=== PATIENT | female | born 1980 | race Caucasian/White ===

== ENCOUNTER 2023-11-27 08:13 | Emergency (ER) | payer BC, SELFPAY ==
--- NOTE | 2023-11-27 08:28 | ED.GENADULT ---
HPI - General Adult General Date Seen: 11/27/23 Chief complaint: Flank Pain Stated complaint: RT flank pain hx kidney stones Time Seen by Provider: 11/27/23 08:27 History of Present Illness HPI narrative: 43 yo F with h/o kidney stones, VIRGILIO, elevated BMI, bariatic surgery, iron deficiency anemia, chronic kidney dz (stage 2), migraines, and previous cholecystectomy, gastric sleeve surgery. She presents to the ER today with right flank pain, nausea, and dark colored urine. She has had symptoms of intermittent right flank pain for about a week. She says it feels like kidney stone. She has been dealing with the pain and trying to wait for it to pass. However it has been a week now and it is not getting any better. The pain has been intermittently in her right flank and sometimes radiating to her right upper quadrant. There is no clear pattern or trigger for the pain. Does not seem to be postprandial. She has been nauseous at times due to pain but no vomiting. Bowel movements have been normal. She is not having any trouble with her menstrual cycle. She does not think she is . She has noted some dark urine but that might be blood. No dysuria or urgency but she notes that sometimes she seems to have ?a splattering? stream when she urinates. This morning her pain is worse and since has been going on over a week now she decided to come to the ER. Her mother drove her here and will be able to give her ride home. EXAM: CT ABDOMEN PELVIS STONE PROTOCOL WO LOCATION: [facility] DATE/TIME: 04/26/2021 INDICATION: Flank Pain COMPARISON: 07/29/19 TECHNIQUE: CT scan of the abdomen and pelvis was performed without oral or IV contrast. Multiplanar reformats were obtained. Dose reduction techniques were used. CONTRAST: None. FINDINGS: LOWER CHEST: Normal. HEPATOBILIARY: Gallbladder removed. Normal liver. PANCREAS: Norml. SPLEEN: Normal. ADRENAL GLANDS: Normal. KIDNEY/BLADDER: No renal stones and no hydronephrosis. The tiny bilateral nonobstructing intrarenal stones seen on the prior study are no longer present. BOWEL: Postop gastric sleeve. Bowel loops otherwise normal. LYMPH NODES: Normal. VASCULATURE: Unremarkable. PELVIC ORGANS: Normal. MUSCULOSKELETAL: Normal. ? IMPRESSION: 1. Nothing to explain the patient's flank pain. 2. The previous nonobstructing intrarenal stones are no longer present. Related Data Home Medications ?Medication ?Instructions ?Recorded ?Confirmed duloxetine 60 mg capsule,delayed 60 mg PO DAILY 11/27/23 11/27/23 release omeprazole 40 mg capsule,delayed 40 mg PO DAILY 11/27/23 11/27/23 release Previous Rx's ?Medication ?Instructions ?Recorded cyclobenzaprine 10 mg tablet 10 mg PO TID PRN muscle spasm #10 11/27/23 tabs hydrocodone 5 mg-acetaminophen 325 1 tab PO Q4-6H PRN pain #14 tabs 11/27/23 mg tablet Allergies Allergy/AdvReac Type Severity Reaction Status Date / Time Sulfa (Sulfonamide Allergy Unknown Verified 11/27/23 08:51 Antibiotics) [facility] Social History Smoking Status: Current every day smoker Do you use any of these nicotine containing products: Vaping Products How often do you have a drink containing alcohol: never How often do you have six or more drinks on one occasion: Never AUDIT-C Alcohol total score: 0 Non-prescribed substance use: denies use Exam Narrative: Exam Narrative: Constitutional: Appears well-developed and well-nourished. Alert. Conversant. Uncomfortable, but Non toxic. HENT: Head: Atraumatic. Nose: Nose normal. Mouth/Throat: Oral mucosa is clear and moist. no trismus. Eyes: Conjunctivae normal. EOM normal. Pupils equal, round, and reactive to light. No scleral icterus. Neck: Normal range of motion. Neck supple. No tracheal deviation present. Cardiovascular: Normal rate, regular rhythm. No gallop. No friction rub. No murmur heard. Symmetric radial artery pulses Pulmonary/Chest: Effort normal. No stridor. No respiratory distress. No wheezes. No rales. No rhonchi . No tenderness. Abdominal: Soft. Bowel sounds normal. No distension. No mass. No tenderness. No rebound. No guarding. Marked right CVA tenderness to even light touch. No vesicular rash or shingles. Musculoskeletal: RUE: Normal range of motion. No tenderness. No deformity LUE: Normal range of motion. No tenderness. No deformity RLE: Normal range of motion. No edema. No tenderness. No deformity LLE: Normal range of motion. No edema. No tenderness. No deformity Neurological: Alert and oriented to person, place, and time. Normal strength. CN II-VII intact. No sensory deficit. GCS eye subscore is 4. GCS verbal subscore is 5. GCS motor subscore is 6. Normal coordination Skin: Skin is warm and dry. No rash noted. No pallor. Normal capillary refill. Psychiatric: Normal mood. Normal affect. Const: Vital Signs, click to edit/add: Vital Signs - 24 hr 11/27/23 08:33 11/27/23 09:15 Temperature 97.2 F L Pulse Rate [Pulse Oximeter] 93 70 Respiratory Rate 18 18 Blood Pressure [Ri ght Upper Arm] 159/96 H Pulse Oximetry 97 97 Oxygen Delivery Me thod Room Air Room Air Course Vital Signs Vital signs: Initial Vital Signs Temperature 97.2 F L 11/27/23 08:33 Temperature Source Temporal Artery Scan 11/27/23 08:33 Pulse Rate 93 11/27/23 08:33 Respiratory Rate 18 11/27/23 08:33 Blood Pressure 159/96 H 11/27/23 08:33 Blood Pressure Mean 117 H 11/27/23 08:33 Pulse Oximetry 97 11/27/23 08:33 Oxygen Delivery Method Room Air 11/27/23 08:33 Vital Signs Temperature 97.2 F L 11/27/23 08:33 Pulse Rate 93 11/27/23 08:33 Respiratory Rate 18 11/27/23 08:33 Blood Pressure 159/96 H 11/27/23 08:33 Pulse Oximetry 97 11/27/23 08:33 Oxygen Delivery Method Room Air 11/27/23 08:33 Temperature 97.2 F L 11/27/23 08:33 Pulse Rate 70 11/27/23 09:15 Respiratory Rate 18 11/27/23 09:15 Blood Pressure 159/96 H 11/27/23 08:33 Pulse Oximetry 97 11/27/23 09:15 Oxygen Delivery Method Room Air 11/27/23 09:15 Medications Administered Medications: Generic Name Dose Route Start Last Admin Trade Name Freq PRN Reason Stop Dose Admin Hydromorphone HCl 0.5 mg 11/27/23 08:51 11/27/23 09:19 Hydromorphone 0.5 Mg/0.5 Ml Inj IVP 0.5 mg Q1H PRN Administration Pain Discontinued Medications Generic Name Dose Route Start Last Admin Trade Name Freq PRN Reason Stop Dose Admin Ketorolac Tromethamine 15 mg 11/27/23 08:51 11/27/23 09:19 Ketorolac 15 Mg/Ml Inj IVP 11/27/23 08:52 15 mg ONCE ONE Administration Ondansetron HCl 4 mg 11/27/23 08:51 11/27/23 09:19 Ondansetron 2 Mg/Ml Inj IVP 11/27/23 08:52 4 mg ONCE ONE Administration Medical Decision Making MDM Narrative Medical decision making narrative: Presented to the Emergency Department with right flank pain. The differential diagnosis of abdominal pain includes: Kidney stone, pyelonephritis, musculoskeletal pain, unusual presentation of Appendicitis, Bowel Obstruction, Ulcer, Ischemia, Diverticulitis, Pancreatitis, Enteritis/Colitis, amongst many other etiologies. Primary concern is for possible kidney stone since she has a history of stones. She is status post cholecystectomy. She is not having any pain with breathing. No shortness of breath. Clear lungs. No hypoxia or tachycardia to suggest PE. Laboratory testing does not reveal a cause for the patient's pain. LFTs and lipase are normal. No evidence to suggest a retained common bile duct stone. Urinalysis is negative for hematuria or pyuria. Stone protocol CT Imaging is noted to be normal. The exact etiology of the abdominal pain is not clear at this time. She does have a couple of red dots, which led me to consider shingles, but no vesicular lesions, and these erythematous lesions on her right low back a little bit lower than where her pain is so do not seem consistent with shingles. She does not have any history of hypercoagulability. No reason to suspect renal infarct. At this point we feel that the risk of radiation with repeat CT scan , would outweigh the benefit at this point so will hold off on a contrast CT for now. She does note a lot of pain with movement. Therefore, pain could be musculoskeletal. No life threatening cause or need for emergent surgery or hospital admission is detected today. Will treat with [place] and Flexeril. Opiate and sedation precautions reviewed. The patient was advised that if symptoms do not completely resolve within another 24 hours re-evaluation with primary care or return to the ED is indicated. The patient also understands that if they worsen, they should return to the ER right away. I discussed the uncertainty about the diagnosis and answered the patient's questions. Return precautions discussed. Lab Data Labs: Lab Results 11/27/23 11/27/23 Range/Units 09:05 09:08 WBC 7.47 (4.50-11.00) K/uL RBC 4.56 (4.00-5.20) m/uL Hgb 13.3 (12.0-16.0) gm/dL Hct 39.3 (33.0-51.0) % MCV 86 (80-100) fL MCH 29 (26-34) pg MCHC 34 (32-36) gm/dL RDW Coeff of [place] 13.6 (11.5-15.5) % Plt Count 349 (140-440) K/uL Neut % (Auto) 64.3 (42.0-72.0) % Lymph % (Auto) 27.3 (20-44) % [place] % (Auto) 5.8 (0.0-11.0) % Eos % (Auto) 2.1 (0.0-7.0) % Baso % (Auto) 0.4 (0.0-3.0) % Neut # (Auto) 4.80 (1.7-7.0) K/uL Lymph # (Auto) 2.04 (0.90-2.90) K/uL [place] # (Auto) 0.40 (0.00-0.90) K/UL Eos # (Auto) 0.16 (0.00-0.50) K/uL Baso # (Auto) 0.03 (0.00-0.30) K/uL Abs Immat Gran (auto) 0.01 (0.00-0.30) K/uL Imm/Tot Granulo (auto) 0.1 % Sodium 138 (135-149) mmol/L Potassium 3.7 (3.6-5.1) mmol/L Chloride 108 (96-114) mmol/L Carbon Dioxide 20 (20-32) mmol/L Anion Gap 10 (7-15) mEq/L BUN 3 L (5-24) mg/dL Creatinine 0.7 (0.5-1.5) mg/dL Estimated Creat Clear 83.65 Estimated GFR 111 ml/min Glucose 94 (60-115) mg/dL Calcium 8.9 (8.4-10.6) mg/dL Total Bilirubin 0.2 (0.1-1.5) mg/dL AST 20 (12-35) U/L ALT 19 (4-35) U/L Alkaline Phosphatase 60 (40-150) U/L Total Protein 7.1 (6.0-8.3) g/dL Albumin 4.1 (3.3-5.0) g/dL Lipase 65 (23-300) U/L HCG, Quant < 2.39 mIU/mL Urine Color Yellow (Yellow) Urine Appearance Clear (Clear) Urine pH 7.0 (5.0-8.5) Ur Specific [place] 1.025 (1.000-1.030) Urine Protein Negative (Negative) Urine Glucose (UA) Negative (Negative) Urine Ketones Negative (Negative) Urine Blood Negative (Negative) Urine Nitrite Negative (Negative) Urine Bilirubin Negative (Negative) Urine Urobilinogen 0.2 (0.2-1.0) Ur Leukocyte Esterase Negative (Negative) Urine RBC 0-2 (0-2) Urine WBC 0-2 (0-5) Ur Squamous Epith Cells Moderate A (None-Few) Urine Bacteria None (None) Imaging Data CT scan - abdomen: Attestation: I have reviewed the pertinent imaging results. Radiologist's impression: FINDINGS: LUNG BASES: The lung bases as visualized appear normal.The heart size is normal at the lung bases. Incidental small fat containing [place] hernia on the left. LIVER/BILIARY SYSTEM:The liver is normal in size and configuration given the lack of intravenous contrast. There is no visible focal mass and there is no intra- or extra hepatic biliary ductal dilatation.Surgically absent gallbladder ADRENALS: Normal non-contrast appearance KIDNEYS, URETERS and BLADDER:The kidneys appear normal given lack of intravenous contrast. No visible mass, calculus or hydronephrosis. The ureters and bladder as visualized appear normal. SPLEEN:Normal non-contrast appearance. PANCREAS: Normal non-contrast appearance. RETROPERITONEUM and MESENTERY: There is no mass, adenopathy or aortic aneurysm. GASTROINTESTINAL SYSTEM: There is no evidence of diverticulitis, colitis, mechanical obstruction, or appendicitis. The small bowel as visualized appears normal.Small hiatal hernia. Findings related to gastric bypass without evidence of associated complication. The appendix is well seen and appears normal PELVIS: No mass, adenopathy or free fluid. OSSEOUS STRUCTURES and ABDOMINAL WALL: There is an age-appropriate appearance of the osseous structures.No significant abdominal wall defect. OTHER: No free fluid or free air. IMPRESSION: No specific visible cause for right flank pain. Incidental nonacute appearing findings as discussed above. Discharge Plan Discharge Clinical Impression: Acute right flank pain Patient Disposition: Home, Self-Care Condition: Stable Instructions: Flank Pain (ED) Additional Instructions: As we discussed, so far your workup looks reassuring. However we do not know for sure what is causing your side to her. Monitor carefully. Use the pain meds and muscle relaxers to help relieve the pain. If your pain is not substantially improved by tomorrow, come back to the ER or see your doctor for recheck. If her pain gets worse or if you have other new concerning symptoms such as fever, trouble breathing, coughing, or worsening pain, come back to the ER immediately. Use caution with [place] and Flexeril because these medications can cause dizziness, drowsiness, and can be addictive. Prescriptions: New hydrocodone-acetaminophen 5-325 mg tablet 1 tab PO Q4-6H PRN (Reason: pain) Qty: 14 0RF cyclobenzaprine 10 mg tablet 10 mg PO TID PRN (Reason: muscle spasm) Qty: 10 0RF No Action omeprazole 40 mg capsule,delayed release(DR/EC) 40 mg PO DAILY duloxetine 60 mg capsule,delayed release(DR/EC) 60 mg PO DAILY Follow Up/Referrals: Provider,Not a Local [Primary Care Provider] - Stand Alone Forms: [employer] Info Instructions
[2023-11-27 08:33] VITALS: BP 159/96; PULSE 93; RESP 18; TEMP 36.2; O2SAT 97; BMI 45.7
--- NOTE | 2023-11-27 08:51 | CT_ITS ---
Patient: CATARINA ZAMORANO Facility:?[facility] Patient ID:?[id number] Site Patient ID:?[id number]. Site :?[id number] Study:?CT-Abdomen/Pelvis-11/27/2023 9:33:38 AM Ordering Physician:Polina Camejo Final Report: INDICATION: Right flank pain COMPARISON: None TECHNIQUE: CT examination of the abdomen and pelvis was performed without intravenous contrast. Thin section axial images were obtained from the lung bases through the pubic symphysis. Oral contrast was not administered. Please note that all CT scans at this facility use dose modulation, iterative reconstruction, and/or weight-based dosing when appropriate to reduce radiation dose to as low as reasonably achievable. FINDINGS: LUNG BASES: The lung bases as visualized appear normal.The heart size is normal at the lung bases. Incidental small fat containing [place] hernia on the left. LIVER/BILIARY SYSTEM:The liver is normal in size and configuration given the lack of intravenous contrast. There is no visible focal mass and there is no intra- or extra hepatic biliary ductal dilatation.Surgically absent gallbladder ADRENALS: Normal non-contrast appearance KIDNEYS, URETERS and BLADDER:The kidneys appear normal given lack of intravenous contrast. No visible mass, calculus or hydronephrosis. The ureters and bladder as visualized appear normal. SPLEEN:Normal non-contrast appearance. PANCREAS: Normal non-contrast appearance. RETROPERITONEUM and MESENTERY: There is no mass, adenopathy or aortic aneurysm. GASTROINTESTINAL SYSTEM: There is no evidence of diverticulitis, colitis, mechanical obstruction, or appendicitis. The small bowel as visualized appears normal.Small hiatal hernia. Findings related to gastric bypass without evidence of associated complication. The appendix is well seen and appears normal PELVIS: No mass, adenopathy or free fluid. OSSEOUS STRUCTURES and ABDOMINAL WALL: There is an age-appropriate appearance of the osseous structures.No significant abdominal wall defect. OTHER: No free fluid or free air. IMPRESSION: No specific visible cause for right flank pain. Incidental nonacute appearing findings as discussed above. Please note that all CT scans at this facility use dose modulation, iterative reconstruction, and/or weight-based dosing when appropriate to reduce radiation dose to as low as reasonably achievable. Dictated by Russ Pal MD @ 11/27/2023 9:44:08 AM Signed by:?Russ Pal MD @11/27/2023 9:44:08 AM (Electronic Signature)
[2023-11-27 09:13] LABS: Basophils Absolute Auto 0.03 K/uL (0.00-0.30); Basophils Percent Auto 0.4 % (0.0-3.0); Eosinophils Absolute Auto 0.16 K/uL (0.00-0.50); Eosinophils Percent Auto 2.1 % (0.0-7.0); Hematocrit 39.3 % (33.0-51.0); Hemoglobin* 13.3 gm/dL (12.0-16.0); Immature Granulocytes Abs Auto 0.01 K/uL (0.00-0.30); Immature Granulocytes Pct Auto 0.1 %; Lymphocytes Absolute Auto 2.04 K/uL (0.90-2.90); Lymphocytes Percent Auto 27.3 % (20-44); Mean Corpuscular HGB Conc 34 gm/dL (32-36); Mean Corpuscular Hemoglobin 29 pg (26-34); Mean Corpuscular Volume 86 fL (80-100); Monocytes Percent Auto 5.8 % (0.0-11.0); Neutrophils Percent Auto 64.3 % (42.0-72.0); Platelet Count* 349 K/uL (140-440); RDW Coefficient of Variation % 13.6 % (11.5-15.5); Red Blood Count 4.56 m/uL (4.00-5.20); White Blood Count* 7.47 K/uL (4.50-11.00)
[2023-11-27 09:15] VITALS: PULSE 70; RESP 18; O2SAT 97
[2023-11-27 09:15] LABS: Appearance Urine Clear (Clear); Bilirubin Urine Negative (Negative); Blood Urine Negative (Negative); Color Urine Yellow (Yellow); Glucose Urine Negative (Negative); Ketones Urine Negative (Negative); Leukocyte Esterase Urine Negative (Negative); Nitrite Urine Negative (Negative); Protein Urine Negative (Negative); Specific Gravity Urine 1.025 (1.000-1.030); Urobilinogen Urine 0.2 (0.2-1.0)
[2023-11-27] MEDS: KETOROLAC 15 MG/ML inj IVP (09:19)
[2023-11-27] MEDS: ONDANSETRON 2 MG/ML inj 4 MG IVP (09:19)
[2023-11-27] MEDS: HYDROmorphone 0.5 mg/0.5 ml inj IVP (09:19)
[2023-11-27 09:21] LABS: Slide Review Reflex No
[2023-11-27 09:24] LABS: RBC Urine 0-2 (0-2); Squamous Epithelial Cell Urine Moderate (None-Few); WBC Urine 0-2 (0-5)
[2023-11-27 09:29] LABS: Albumin* 4.1 g/dL (3.3-5.0); Chloride* 108 mmol/L (96-114); Potassium* 3.7 mmol/L (3.6-5.1); Sodium* 138 mmol/L (135-149)
[2023-11-27 09:31] LABS: Creatinine* 0.7 mg/dL (0.5-1.5); Est. Creatinine Clearance* 83.65; Estimated Glomerular Filt Rate 111 ml/min
[2023-11-27 09:32] LABS: Alanine Aminotransferase* 19 U/L (4-35); Alkaline Phosphatase* 60 U/L (40-150); Anion Gap 10 mEq/L (7-15); Aspartate Amino Transferase* 20 U/L (12-35); Bilirubin Total* 0.2 mg/dL (0.1-1.5); Blood Urea Nitrogen* 3 mg/dL (5-24); Carbon Dioxide* 20 mmol/L (20-32); Glucose* 94 mg/dL (60-115); Lipase* 65 U/L (23-300); Total Protein* 7.1 g/dL (6.0-8.3)
[2023-11-27 09:33] LABS: Calcium* 8.9 mg/dL (8.4-10.6)
[2023-11-27 10:02] LABS: HCG Quantitative* < 2.39 mIU/mL
== END 2023-11-27 11:36 | disposition home or self-care (01) ==
PROVIDERS: Emergency Provider Emergency Medicine
DX: R10.9 Unspecified abdominal pain (principal)
CPT/HCPCS: 36415; 74176; 80053; 81001; 83690; 84702; 85025; 96374; 96375; 99283; 99284; J1171; J1885; J2405